=== PATIENT | male | born 1935 | race Caucasian/White ===

== ENCOUNTER 2018-12-01 05:48 | Day surgery (SDC) | payer OTHER ==
[2018-12-01] MEDS ORDERED: ceFAZolin 2 GM/DEXTROSE 100 ML IV ONE (06:23)
[2018-12-01] MEDS ORDERED: LR 1,000 ML IV ONE (06:24)
[2018-12-01] MEDS ORDERED: BUPIVACAINE 0.5% 30 ML SDV ONE (06:58)
--- NOTE | 2018-12-01 07:06 | PDHPUP ---
History & Physical Update H&P update statement: This history and physical update is based on an assessment of the patient which was completed after admission or registration (within 24 hours), but prior to the surgery/procedure. H&P update: H&P reviewed & patient examined, no change in patient's condition since H&P completed
--- NOTE | 2018-12-01 07:07 | PDANEPAE ---
ANE Past Medical History - Cardiovascular History Hx Hypertension: Yes Hx Arrhythmias: No Hx Chest Pain: No Hx Coronary Artery / Peripheral Vascular Disease: No Hx CHF / Valvular Disease: No Hx Palpitations: No - Pulmonary History Hx COPD: No Hx Asthma/Reactive Airway Disease: No Hx Recent Upper Respiratory Infection: No Hx Oxygen in Use at Home: No Hx Sleep Apnea: No Sleep Apnea Screening Result - Last Documented: Positive Pulmonary History Comment: ARUNA does not use CPAP - Neurologic History Hx Cerebrovascular Accident: Yes Hx Seizures: No Hx Dementia: No Neurologic History Comment: 2005 - Endocrine History Hx Diabetes: No - Renal History Hx Renal Disorders: No - Liver History Hx Hepatic Disorders: No - Neurological & Psychiatric Hx Hx Neurological and Psychiatric Disorders: Yes Neurological / Psychiatric History Comment: essential tremor. parkinsons - Cancer History Hx Cancer: Yes Cancer History Comment: prostate - Congenital Disorder History Hx Congenital Disorders: No - GI History Hx Gastrointestinal Disorders: No - Other Health History Other Health History: itchy rash on legs and back. cataract sx 2018. bridge top secured. bruises easily - Chronic Pain History Chronic Pain: Yes (trigeminal neuralgia left) - Surgical History Prior Surgeries: bilat TKA 2018,2019. Thumb joint fused 1998 ANE Review of Systems Review of Systems: - Exercise capacity METS (RN): 4 METS ANE Patient History - Allergies Allergies/Adverse Reactions: No Known Allergies Allergy (Verified 11/29/18 10:55) - Home Medications Home Medications: Ambien 11/29/18 [Last Taken 11/30/18] Lisinopril 11/29/18 [Last Taken 12/01/18] Lyrica 11/29/18 [Last Taken 11/30/18] Multivitamins 11/29/18 [Last Taken Unknown] Plavix 11/29/18 [Last Taken 11/29/18] Valacyclovir HCl 11/29/18 [Last Taken 11/30/18] - NPO status NPO Since - Liquids (Date): 12/01/18 NPO Since - Liquids (Time): 05:15 NPO Since - Solids (Date): 11/30/18 NPO Since - Solids (Time): 19:30 - Smoking Hx Smoking Status: Never smoked - Family Anes Hx Family Hx Anesthesia Complications: none ANE Labs/Vital Signs - Labs Result Diagrams: 12/01/18 06:50 - Vital Signs Blood Pressure: 144/92 Heart Rate: 68 Respiratory Rate: 16 O2 Sat (%): 91 Height: 177.8 cm Weight: 77.111 kg ANE Physical Exam - Airway Neck exam: FROM Mallampati Score: Class 2 Mouth exam: normal dental/mouth exam - Pulmonary Pulmonary: no respiratory distress - Cardiovascular Cardiovascular: regular rate and rhythym - ASA Status ASA Status: III ANE Anesthesia Plan Anesthesia Plan: general endotracheal anesthesia
[2018-12-01] MEDS ORDERED: PROPOFOL/EMULSION 500 MG/50 ML BOTTLE IV ONE (07:11)
[2018-12-01] MEDS ORDERED: fentaNYL 100 MCG/2 ML INJ ONE ×2 (07:11→09:11)
[2018-12-01] MEDS ORDERED: LIDOCAINE 2% 100 MG/5 ML SYR ONE (07:14)
[2018-12-01] MEDS ORDERED: ONDANSETRON 4 MG/2 ML VIAL ONE (07:14)
[2018-12-01] MEDS ORDERED: ROCURONIUM 50 MG/5 ML VIAL ONE (07:14)
[2018-12-01] MEDS ORDERED: ALBUTEROL 3 ML DEYVIAL IH PRN (07:54)
[2018-12-01] MEDS ORDERED: ONDANSETRON 4 MG/2 ML VIAL IVP PRN (07:54)
[2018-12-01] MEDS ORDERED: NALOXONE HCL 0.4 MG/ML INJ IVP PRN (07:54)
[2018-12-01] MEDS ORDERED: HYDROCODONE/APAP 5/325 TAB PO PRN (07:54)
[2018-12-01] MEDS ORDERED: ACETAMINOPHEN 500 MG TAB PO PRN (07:54)
[2018-12-01] MEDS ORDERED: GLYCOPYRROLATE 0.2 MG/1 ML VIAL ONE ×2 (08:01)
[2018-12-01] MEDS ORDERED: NEOSTIGMINE METHYLSULFATE 10 MG/10 ML MDV ONE (08:01)
[2018-12-01] MEDS ORDERED: THROMBIN (BOVINE) 20,000 UNIT VIAL TP ONE (08:13)
--- NOTE | 2018-12-01 08:45 | POSTANESTH ---
Post Anesthetic Evaluation Cardiovascular Status: Similar to Pre-Op Cond Respiratory Status: Similar to Pre-op Cond. Level of Consciousness/Mental Status: Can Participate in Eval, Mildly Sleepy, Arousable Pain Control: Adequate, Prn Tx Ordered Nausea/Vomiting Control: Adequate, Prn Tx Ordered Complications Possibly Related to Anesthesia: None Noted
[2018-12-01] MEDS: fentaNYL 100 MCG/2 ML INJ IVP PRN ×2 (09:13→09:20)
[2018-12-01] MEDS ORDERED: HYDROCODONE/APAP 5/325 TAB ONE (10:00)
[2018-12-01 10:55] VITALS: BP 135/80
--- NOTE | 2018-12-01 11:17 | POSTOPPROG ---
Post Op Note Date of Operation: 12/01/18 Surgeon: Thoyn Sheth Java User Interface Developer: Claudine Anesthesiologist: Ammy Anesthesia: GET(General Endotracheal) Pre-op Diagnosis: RIH Post-op Diagnosis: BIH Indication: pain Procedure: Lap BIH repair c mesh Findings: R direct inguinal hernia, R indirect hernia Inf/Abcess present in the surg proc area at time of surgery?: No Depth: Deep Incisional (Fascial) EBL: Minimal
--- NOTE | 2018-12-06 13:10 | GOP ---
[f rep st] OPERATIVE REPORT DATE OF OPERATION: 12/01/2018 SURGEON: Thony Sheth MD METAL MACHINIST: Saira Chow NP. ANESTHESIOLOGIST: Zachary Gimenez MD. PREOPERATIVE DIAGNOSIS: Right inguinal hernia. POSTOPERATIVE DIAGNOSIS: Bilateral inguinal hernias. PROCEDURE PERFORMED: Laparoscopic bilateral inguinal hernia repairs with mesh. FINDINGS: A large indirect right inguinal hernia and a small direct left inguinal hernia. ESTIMATED BLOOD LOSS: Negligible. He was taken to the recovery room in good condition. DESCRIPTION OF PROCEDURE: The patient was taken to the operating room where he received a satisfacto ry general endotracheal anesthesia. He was placed in the supine position, prepped and draped in the usual sterile fashion. An infraumbilical incision was made and carried down to the rectus sheath, wh ich was incised. A subfascial tunnel was developed in the preperitoneal space, which was dissected f ree with balloon dissector. That was replaced with a CO2 insufflation trocar and 2 other trocars wer e placed in the midline under direct vision. Seb ligament was exposed bilaterally. The cords wer e mobilized bilaterally. The peritoneum was dissected off the cord structures. On the left side, th ere was no significant indirect sac, but a direct weakness, which was freed up and cleared. Its cont ents were reduced. On the right, a large indirect sac was dissected free off the cord structures and uneventfully reduced. Hemostasis was secured. On the right side, a Covidien polyester mesh split p atch was inserted and positioned in place and secured with AbsorbaTack, securing it to the Seb lig ament, to the lacunar ligament, to the internal oblique fascia and to the anterior abdominal wall out side the internal ring. Hemostasis was assured. On the left side, a 3D mesh patch was inserted in p lace and then anchored to Seb ligament, to the anterior oblique fascia and to the corner ligament with an AbsorbaTack instrument. Hemostasis was assured. The wound was irrigated. Trocars were laine davida under direct vision. Pneumoperitoneum was released. Trocar sites were closed with 0 Vicryl for the fascia, 4-0 Monocryl subcuticular stitch for the skin and all layers infiltrated with 0.5% Marcai ne. Copy requested to: JANELLE MORROW /[id number]/MODL
== END 2018-12-01 10:58 | disposition home or self-care (01) ==
LOC: FSGY 05:48
PROVIDERS: ATTEND Surgery
PROC: 0YUA4JZ Supplement Bilateral Inguinal Region with Synthetic Substitute, Percutaneous Endoscopic Approach (ICD-10-PCS; principal; 2018-12-01 07:15)
DX: K40.20 Bilateral inguinal hernia, without obstruction or gangrene, not specified as recurrent (principal); I10 Essential (primary) hypertension; G47.33 Obstructive sleep apnea (adult) (pediatric); Z86.73 Personal history of transient ischemic attack (TIA), and cerebral infarction without residual deficits; G20 Parkinson's disease; Z96.653 Presence of artificial knee joint, bilateral; Z85.46 Personal history of malignant neoplasm of prostate
CPT/HCPCS: C1727; C1781; J0690; J2001; J2405; J2704; J3010